=== PATIENT | female | born 2000 | race Caucasian/White ===

== ENCOUNTER 2018-01-03 12:26 | Emergency (ER) | payer SELFPAY ==
[~2018-01-03] VITALS: Ht 177.8 cm; Wt 104.3 kg
[2018-01-03 13:19] LABS: BASO # 0.1 x10^3/uL (0.0-0.2); BASO % 1 % (0-3); EOS # 0.4 x10^3/uL (0.0-0.7); EOS % 5 % (0-3); HEMATOCRIT 39.8 % (36.0-47.0); LYMPH # 1.7 x10^3/uL (1.0-4.8); LYMPH % 20 % (24-48); MEAN CORPUSCULAR HEMOGLOBIN 31 pg (25-35); MEAN CORPUSCULAR HGB CONC 35 g/dL (31-37); MEAN CORPUSCULAR VOLUME 87 fL (79-100); MONO # 0.5 x10^3/uL (0.0-1.1); MONO % 6 % (0-9); NEUT % 68 % (31-73); PLATELET COUNT 370 x10^3/uL (140-400); RED BLOOD COUNT 4.57 x10^6/uL (3.50-5.40); RED CELL DISTRIBUTION WIDTH 13.6 % (11.5-14.5); WHITE BLOOD COUNT 8.7 x10^3/uL (4.0-11.0)
[2018-01-03 13:26] LABS: CALCIUM 9.5 mg/dL (8.5-10.1); CREATININE 0.8 mg/dL (0.6-1.0); GFR 92.4; POTASSIUM 3.7 mmol/L (3.5-5.1)
[2018-01-03 13:29] LABS: PREG TEST PT QUAL NEGATIVE (NEG)
--- NOTE | 2018-01-03 13:33 | RAD ---
CT HEAD WO CONTRAST dated 01/03/2018 12:52 PM Indication:..SEIZURE. Comparison: No comparison is available. Technique: Contiguous axial imaging the head was performed from skull base to vertex. No contrast administered. One or more of the following individualized dose reduction techniques were utilized for this examination: 1. Automated exposure control 2. Adjustment of the mA and/or kV according to patient size 3. Use of iterative reconstruction technique Findings: Ventricles and sulci are within normal limits for age. No midline shift or mass effect. Brain parenchyma is of normal attenuation. No hemorrhage or extra axial collection. Posterior fossa and brainstem unremarkable. Visualized paranasal sinuses and mastoid air cells are clear. No apparent calvarial abnormality. IMPRESSION: No evidence of acute intracranial abnormality. Electronically signed by: Luca Cabrera MD (01/03/2018 1:29 PM) [id number]
--- NOTE | 2018-01-03 14:04 | EKG ---
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
[2018-01-03 14:15] LABS: AMPHETAMINE/METHAMPHETAMINE NEG (NEG); BARBITURATES NEG (NEG); BENZODIAZEPINES NEG (NEG); CANNABINOIDS NEG (NEG); COCAINE NEG (NEG); METHADONE NEG (NEG); OPIATES NEG (NEG); PHENCYCLIDINE NEG (NEG)
[2018-01-03] MEDS ORDERED: LEVE750T41 PO (14:29)
--- NOTE | 2018-01-03 14:29 | PHYS DOC ---
Past History Past Medical History: Depression, Seizure Past Surgical History: No Surgical History Alcohol Use: None Drug Use: None Adult General Chief Complaint Chief Complaint: SEIZURE HPI HPI 17-year-old female presenting to the emergency department today after having a seizure. She reportedly just was [facility] recently where she was provided 750 mg of Keppra twice a day for seizure treatment. When she was released, she was not given any medication to go home with. Unfortunately she has had a hard time paying for medication so she has not been able to take her seizure medication since being in detention. The seizure lasted for less than 3 minutes. It was generalized tonic-clonic. No tongue biting. No urinary incontinence. She did not hit her head when she had this event. Review of systems is negative for fevers chills chest pain shortness of breath nausea vomiting diarrhea constipation polyuria or dysuria. She denies any difficulty speaking, slurred speech, vision changes. All other review of systems is negative unless otherwise noted in history of present illness. ED course: 17-year-old female presenting the emergency department today after having a seizure-like event versus syncope. Vital signs afebrile with a tachy heart rate initially which came down in the ED. Blood pressure within normal limits. On arrival the patient has a normal neurologic exam. No evidence of head trauma. Mildly tachycardic rate initially on auscultation. No murmur. Abdomen is soft and nontender. Otherwise unremarkable examination. The patient was given 750 mg of oral Keppra by mouth. Head CT unremarkable. EKG obtained and reviewed by myself shows sinus rhythm with a regular rate at 95. ST segments congruent. Not suggestive of ACS. No signs of Brugada, WPW, normal QT. Not suggestive of HOCM. Blood work unremarkable. Urine drug screen unremarkable. Negative . I discussed the case with Dr. Mack our neurologist who will follow the patient in clinic. Until then he agrees that we should write the patient for 750 mg of Keppra twice a day.The patient has been examined and was not found to have an emergency medical condition. The patient was then discharged home in stable condition. They were to return if their symptoms worsened or if they were concerned for any reason. [id number] discharge instructions and return precautions were given. Patient's questions were answered to their satisfaction. Patient is comfortable with plan. Review of Systems Review of Systems SEE ABOVE. Allergies Allergies Allergies Coded Allergies Type Severity Reaction Last Updated Verified penicillin G Allergy Intermediate 01/03/18 Yes Physical Exam Physical Exam SEE ABOVE Constitutional: Well developed, well nourished, no acute distress, non-toxic appearance. [] HENT: Normocephalic, atraumatic, bilateral external ears normal, oropharynx moist, no oral exudates, nose normal. [] Eyes: PERRLA, EOMI, conjunctiva normal, no discharge. [] Neck: Normal range of motion, no tenderness, supple, no stridor. [] Cardiovascular:Heart rate regular rhythm, no murmur [] Lungs & Thorax: Bilateral breath sounds clear to auscultation [] Abdomen: Bowel sounds normal, soft, no tenderness, no masses, no pulsatile masses. [] Skin: Warm, dry, no erythema, no rash. [] Back: No tenderness, no CVA tenderness. [] Extremities: No tenderness, no cyanosis, no clubbing, ROM intact, no edema. [] Neurologic: Mental status: Awake oriented and alert x3 Cranial nerves: Extraocular movements intact, eyebrows nneka bilaterally, smile symmetric, uvula elevation nl, shoulder shrug intact bilaterally, tongue protrusion normal DTRs: 2+ Sensation: equal and normal in all extremities Strength: 5/5 in upper and lower extremities bilaterally Psychologic: Affect normal, judgement normal, mood normal. [] Current Patient Data Vital Signs Vital Signs Date Time Temp Pulse Resp B/P (MAP) Pulse Ox O2 Delivery O2 Flow Rate FiO2 01/03/18 13:40 99 18 128/80 (96) 98 Room Air 01/03/18 12:33 98.7 Lab Results Laboratory Tests Test 01/03/18 13:08 01/03/18 13:50 White Blood Count 8.7 x10^3/uL (4.0-11.0) Red Blood Count 4.57 x10^6/uL (3.50-5.40) Hemoglobin 14.0 g/dL (12.0-15.5) Hematocrit 39.8 % (36.0-47.0) Mean Corpuscular Volume 87 fL (79-100) Mean Corpuscular Hemoglobin 31 pg (25-35) Mean Corpuscular Hemoglobin Concent 35 g/dL (31-37) Red Cell Distribution Width 13.6 % (11.5-14.5) Platelet Count 370 x10^3/uL (140-400) Neutrophils (%) (Auto) 68 % (31-73) Lymphocytes (%) (Auto) 20 % (24-48) L Monocytes (%) (Auto) 6 % (0-9) Eosinophils (%) (Auto) 5 % (0-3) H Basophils (%) (Auto) 1 % (0-3) Neutrophils # (Auto) 6.0 x10^3uL (1.8-7.7) Lymphocytes # (Auto) 1.7 x10^3/uL (1.0-4.8) Monocytes # (Auto) 0.5 x10^3/uL (0.0-1.1) Eosinophils # (Auto) 0.4 x10^3/uL (0.0-0.7) Basophils # (Auto) 0.1 x10^3/uL (0.0-0.2) Sodium Level 143 mmol/L (136-145) Potassium Level 3.7 mmol/L (3.5-5.1) Chloride Level 106 mmol/L (98-107) Carbon Dioxide Level 27 mmol/L (21-32) Anion Gap 10 (6-14) Blood Urea Nitrogen 11 mg/dL (7-20) Creatinine 0.8 mg/dL (0.6-1.0) Estimated GFR (Cockcroft-Gault) 92.4 Glucose Level 92 mg/dL (70-99) Calcium Level 9.5 mg/dL (8.5-10.1) Serum Test, Qualitative Negative (NEG) Urine Opiates Screen Neg (NEG) Urine Methadone Screen Neg (NEG) Urine Barbiturates Neg (NEG) Urine Phencyclidine Screen Neg (NEG) Urine Amphetamine/Methamphetamine Neg (NEG) Urine Benzodiazepines Screen Neg (NEG) Urine Cocaine Screen Neg (NEG) Urine Cannabinoids Screen Neg (NEG) Urine Ethyl Alcohol Neg (NEG) EKG EKG [] Radiology/Procedures Radiology/Procedures [] Course & Med Decision Making Course & Med Decision Making Pertinent Labs and Imaging studies reviewed. (See chart for details) [] Dragon Disclaimer Dragon Disclaimer This electronic medical record was generated, in whole or in part, using a voice recognition dictation system. Departure Departure: Impression: Primary Impression: Seizure Disposition: 01 HOME, SELF-CARE Condition: STABLE Referrals: PCP,RALPH (PCP) AMANDA MACK MD Patient Instructions: Seizure, Adult Additional Instructions: Thank you for allowing us to participate in your care today. Followup with Neurology in 3-[address] mack. Call your Primary Doctor tomorrow and inform them of your visit today. If you do not have a primary care provider you can ask for a list of our primary care providers. Return to the emergency department you have any new or concerning findings. This should be evaluated by the primary care physician and any necessary consulting services for continued management within a few days after discharge. Return to emergency room if you have any new or concerning symptoms including but not limited to fever, chills, nausea, vomiting, intractable pain, any new rashes, chest pain, shortness of air, uncontrolled bleeding, difficulty breathing, and/or vision loss. If at any time, you are having difficulty getting into your primary care doctor or a specialist, return to the emergency department. Scripts Levetiracetam (KEPPRA) 750 Mg Tablet 750 MG PO BID for 7 Days, #14 TAB 0 Refills Start on 01/04/18 Prov: HERNESTO LOU MD 01/03/18 HERNESTO LOU MD Jan 03, 2018 14:29
[2018-01-03 14:59] VITALS: BP 128/81
[2018-01-03] MEDS ORDERED: levETIRAcetam 500 MG TABLET PO ONE (15:15)
== END 2018-01-03 15:00 | disposition home or self-care (01) ==
LOC: ER 12:26
DX: R56.9 Unspecified convulsions (principal); F32.9 Major depressive disorder, single episode, unspecified; Z88.0 Allergy status to penicillin
CPT/HCPCS: 36415; 70450; 80048; 80307; 84703; 85025; 93005; 99285-25; G0479